=== PATIENT | female | born 1985 | race Caucasian/White ===

== ENCOUNTER 2021-11-14 10:08 | Emergency (ER) | payer MEDICAID ==
[~2021-11-14] VITALS: Ht 160 cm; Wt 54.5 kg
[2021-11-14 10:27] VITALS: BP 114/66
[2021-11-14] MEDS ORDERED: dexamethasone sod phosphate 10mg/ml inj PO STA (11:49)
[2021-11-14] MEDS ORDERED: amoxicillin 250mg capsule PO ONE ×2 (12:00→12:05)
[2021-11-14] MEDS ORDERED: AMOX500C2 PO (12:07)
[2021-11-14] MEDS ORDERED: DEXA6TAB6 PO (12:07)
== END 2021-11-14 12:27 | disposition home or self-care (01) ==
LOC: ER 10:09
DX: J03.90 Acute tonsillitis, unspecified (principal); Z88.8 Allergy status to other drugs, medicaments and biological substances; Z79.899 Other long term (current) drug therapy; Z79.2 Long term (current) use of antibiotics
CPT/HCPCS: 99283; J1100